=== PATIENT | female | born 2000 | race Two or more races ===

== ENCOUNTER 2024-09-20 18:10 | Emergency (ER) | payer MEDICAID, OTHER ==
[~2024-09-20] VITALS: Ht 157.5 cm; Wt 62.1 kg
--- NOTE | 2024-09-20 18:39 | ED.PDOC ---
SOB-HPI HPI Comments 24y F who presents to the ED for chief complaint of flu-like symptoms. Pt states she has been having body aches, congestion and flu-like symptoms for the past 2 days. Pt states today, she started to have RLQ with associated fever and sore throat and came to the ED for evaluation. Pt states he was at dr wright 1 week prior and states she was told "your appendix feels enlarged." Pt otherwise denies any recent sick contacts. Pt denies any other symptoms at this time. Chief Complaint: Flu like Time Seen by MD: 18:37 Reviewed notes: Medications Information Source: Patient Mode of Arrival: Ambulatory Brought in by: self Constitutional: reports: weakness, others (body aches); denies: chills, diaphoresis, fatigue, fever, malaise, sweats EENTM: denies: blurred vision, double vision, ear bleeding, ear discharge, ear drainage, ear pain, ear ringing, eye pain, eye redness, hearing loss, mouth pain, mouth swelling, nasal discharge, nose bleeding, nose congestion, nose pain, photophobia, tearing, throat pain, throat swelling, voice changes, others Respiratory: reports: cough, others (congestion ); denies: hemoptysis, orthopnea, SOB at rest, shortness of breath, SOB with excertion, stridor, whee zing Cardiovascular: denies: chest pain, dizzy spells, diaphoresis, Dyspnea on exertion, edema, irregular heart beat, left arm pain, lightheadedness, palpitations, PND, syncope, others Gastrointestinal: denies: abdomen distended, abdominal pain, blood streaked bowels, constipated, diarrhea, dysphagia, difficulty swallowing, hematemesis, m phani, nausea, poor appetite, poor fluid intake, rectal bleeding, rectal pain, vomiting, others Genitourinary: denies: abnormal vagina bleeding, burning, dyspareunia, dysuria, flank pain, frequency, hematuria, incontinence, pain, , vagina discharge, urgency, others Neurological: denies: dizziness, fainting, headache, left sided numbness, left sided weakness, numbness, paresthesia, pre-existing deficit, right sided numbness, right sided weakness, seizure, speech problems, tingling, tremors, weakness, others Musculoskeletal: denies: back pain, gout, joint pain, joint swelling, muscle pain, muscle stiffness, neck pain, others Integumetry: denies: bruises, change in color, change in hair/nails, dryness, laceration, lesions, lumps, rash, wounds, others Allergic/Immunocompromised: denies: Difficulty Healing, Frequent Infections, Hives, Itching, others Hematologic/Lymphatic: denies: anemia, blood clots, easy bleeding, easy bruising, swollen glands, others Endocrine: denies: excessive hunger, excessive sweating, excessive thirst, excessive urination, flushing, intolerance to cold, intolerance to heat, unexpla ined weight gain, unexplained weight loss, others Psychiatric: denies: anxiety, bipolar disorder, depression, hopeless, panic disorder, schizophrenia, sleepless, suicidal, others All Other Systems: Reviewed and Negative Physical Exam General Appearance: No Apparent Distress, Normal HEENT: Normal ENT Inspection, Pharynx Normal, TMs Normal Neck: Full Range of Motion, Non-Tender, Normal, Normal Inspection Respiratory: Chest Non-Tender, Lungs Clear, No Accessory Muscle Use, No Respiratory Distress, Normal Breath Sounds Cardiovascular: No Edema, No JVD, No Murmur, No Gallop, Normal Peripheral Pulses, Regular Rate/Rhythm Breast Exam: Deferred Gastrointestinal: RLQ (tenderness) Genitalia: Deferred Pelvic: Deferred Rectal: Deferred Extremities: No calf tenderness, Normal capillary refill, Normal inspection, Normal range of motion, Non-tender, No pedal edema Musculoskeletal : Apperance: Normal Neurologic: Alert, 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 Was a procedure done?: No Differential Dx Differential Diagnosis: Pneumonia, Pulmonary Embolism, Respiratory Distress, Pharyngitis, URI Comments influenza A and B, COVID, X-Ray, Labs, Meds, VS Vital Signs Date Time Temp Pulse Resp B/P (MAP) Pulse Ox O2 Delivery O2 Flow Rate FiO2 09/20/24 18:28 99.0 97 18 114/77 (89) 100 Lab Test 09/20/24 18:58 09/20/24 18:23 Range/Units White Blood Count 5.6 4.4-10.8 10^3/uL Red Blood Count 4.84 4.0-5.20 10^6/uL Hemoglobin 13.8 12.2-16.2 g/dL Hematocrit 41.6 36.0-46.0 % Mean Corpuscular Volume 85.8 80.0-100.0 fL Mean Corpuscular Hemoglobin 28.5 28.0-32.0 pg Mean Corpuscular Hemoglobin Concent 33.2 32.0-36.0 g/dL Red Cell Distribution Width 13.1 11.8-14.3 % Platelet Count 326 140-450 10^3/uL Mean Platelet Volume 7.9 6.9-10.8 fL Neutrophils (%) (Auto) 66.7 37.0-80.0 % Lymphocytes (%) (Auto) 20.1 10.0-50.0 % Monocytes (%) (Auto) 12.6 H 0.0-12.0 % Eosinophils (%) (Auto) 0.3 0.0-7.0 % Basophils (%) (Auto) 0.3 0.0-2.0 % Neutrophils # (Auto) 3.8 1.6-8.6 10 ^3/uL Lymphocytes # (Auto) 1.1 0.4-5.4 10 ^3/uL Monocytes # (Auto) 0.7 0-1.3 10 ^3/uL Eosinophils # (Auto) 0 0-0.8 10 ^3/uL Basophils # (Auto) 0 0-0.2 10 ^3/uL Nucleated Red Blood Cells 0.1 % Sodium Level 140 136-145 mmol/L Potassium Level 4.3 3.5-5.1 mmol/L Chloride Level 112 H 98-107 mmol/L Carbon Dioxide Level 24 20-31 mmol/L Anion Gap 4 L 5-15 Blood Urea Nitrogen 8 L 9-23 mg/dL Creatinine 0.85 0.550-1.02 mg/dL Glomerular Filtration Rate Calc 97 >90 mL/min BUN/Creatinine Ratio 9.4 L 10.0-20.0 Serum Glucose 90 74-106 mg/dL Calcium Level 10.1 8.7-10.4 mg/dL Total Bilirubin 0.2 0.2-1.0 mg/dL Aspartate Amino Transferase (AST) 14 13-40 U/L Alanine Aminotransferase (ALT) < 9 7-40 U/L Alkaline Phosphatase 75 46-116 U/L Total Protein 7.4 5.7-8.2 g/dL Albumin 4.6 3.2-4.8 g/dL Lipase 31 12-53 U/L Urine Color Yellow Yellow Urine Clarity Turbid H Clear Urine pH 6.0 5.0-9.0 Urine Specific [place] 1.035 1.001-1.035 Urine Protein 1+ H Negative Urine Ketones Trace Negative Urine Blood Negative Negative /uL Urine Nitrite Negative Negative Urine Bilirubin Negative Negative Urine Urobilinogen 3 H Negative mg/dL Urine Leukocyte Esterase 1+ Negative /uL Urine RBC 9 0 - 4 /hpf Urine WBC 7 0 - 5 /hpf Urine Squamous Epithelial Cells Few <5 /hpf Urine Bacteria Few H None Seen /hpf Urine Mucus Few None Seen Urine Yeast (Budding) Occasional None Seen /hpf Urine Glucose Normal Normal mg/dL [place] [id number] Ph: [phone] DIAGNOSTIC IMAGING Diagnostic Imaging Report : [id number] Signed PATIENT: IGOR VERGARA ACCT: [id number] UNIT: [id number] : 2000 LOC: ER ROOM / BED: / AGE / SEX: 24 / F ADM STATUS: REG ER SERVICE 183 ORDERING PHYSICIAN: JANA KOCH PROCEDURE(s): ABPL - CT AB PEL WO CON-NO ORAL OR IV REASON: RLQ pain ORDER NUMBER(s): [id number], ACCESSION NUMBER(s): [id number] CT SCAN ABDOMEN AND PELVIS WITHOUT CONTRAST CLINICAL HISTORY: RLQ pain TECHNIQUE: Helical axial images are obtained from the lung bases through the pelvis without oral contrast. No intravenous contrast was administered. Coronal and sagittal reformatted images were generated from thin section reconstructions. One or more of the following radiation dose reduction techniques were used for this examination: automated exposure control, adjustment of the mA and/or kV according to patient size, use of iterative reconstruction technique. COMPARISON: None FINDINGS: LOWER THORAX: Imaged lung bases are grossly clear. ABDOMEN AND PELVIS: Evaluation of visceral and vascular structures is limited due to lack of contrast administration. As visualized, the unenhanced liver, spleen, pancreas and adrenals appear grossly unremarkable. No sizable, radiopaque cholelithiasis or biliary ductal dilatation. No hydroureteronephrosis. No evidence of abdominal aortic aneurysm. No evidence of bowel obstruction. Mild apparent wall thickening of some small bowel loops in the mid abdomen. Normal caliber appendix. No free intraperitoneal air or fluid identified. No sizable bladder calculus. No destructive osseous lesions identified. Tiny fat containing umbilical hernia. IMPRESSION: Mild thickening of small-bowel loops in the mid abdomen which may reflect infectious/inflammatory enteritis. Please correlate clinically. ATED BY: SUDARSHAN RAMON MD DICTATED DATE/TIME: 09/20/241916 SIGNED BY: SUDARSHAN RAMON MD SIGNED DATE/TIME: 09/20/241916 CC: X-Ray, Labs, Meds, VS Comment Imaging: X-rays and CT scans were reviewed and interpreted by this provider, imaging shows no fractures and no pathological disease. Pending radiology review. Laboratory: Labs reviewed and interpreted by this provider. Positive bacteria in her urine. Concerns for possible UTI along with a viral infection. Patient has prior medical visits reviewed. Med reconciliation performed Vital signs reviewed Time of 1ST Reevaluation: 19:10 Reevaluation 1ST: Unchanged Patient Education/Counseling: Diagnosis, Treatment, Need For Follow Up (Follow up with the PCP in the next 2-5 days.) Family Education/Counseling: No Family Present Departure 1 Departure Time of Disposition: 20:31 Impression: Primary Impression: Viral illness Additional Impression: Urinary tract infection Qualified Codes: N30.00 - Acute cystitis without hematuria Disposition: HOME / SELF CARE / HOMELESS Condition: Fair e-Prescriptions Ibuprofen (Ibuprofen) 600 Mg Tab 1 TAB PO TID PRN, #30 TAB Prov: JANA KOCH 09/20/24 Nitrofurantoin Monohydrate Mac (Macrobid) 100 Mg Cap 100 MG PO BID for 5 Days, #10 CAP Prov: JANA KOCH 09/20/24 Discharged With: Self Critical Care Note Critical Care Time?: No Stability Stability form required: No Heart Score Heart Score: Heart Score Response (Comments) Value History N/A 0 EKG N/A 0 Age N/A 0 Risk Factors N/A 0 Troponin N/A 0 Total 0 I personally scribed for JANA KOCH ([facility]) on 09/20/24 at 18:39. Electronically submitted by Allan Collado ([email or web address]). I personally scribed for JANA KOCH ([facility]) on 09/20/24 at 19:57. Electronically submitted by Allan Collado ([email or web address]). JANA KOCH Sep 20, 2024 18:39
[2024-09-20 19:16] LABS: Basophils # (auto) 0 10 ^3/uL (0-0.2); Basophils % (auto) 0.3 % (0.0-2.0); Eosinophils # (auto) 0 10 ^3/uL (0-0.8); Eosinophils % (auto) 0.3 % (0.0-7.0); Hematocrit 41.6 % (36.0-46.0); Hemoglobin 13.8 g/dL (12.2-16.2); Lymphocytes # (auto) 1.1 10 ^3/uL (0.4-5.4); Lymphocytes % (auto) 20.1 % (10.0-50.0); Mean Corpuscular Hemoglobin 28.5 pg (28.0-32.0); Mean Corpuscular Hgb Conc. 33.2 g/dL (32.0-36.0); Mean Corpuscular Volume 85.8 fL (80.0-100.0); Monocytes # (auto) 0.7 10 ^3/uL (0-1.3); Monocytes % (auto) 12.6 % (0.0-12.0); Neutrophils # (auto) 3.8 10 ^3/uL (1.6-8.6); Neutrophils % (auto) 66.7 % (37.0-80.0); Nucleated Red Blood Cells % 0.1 %; Platelet Count (auto) 326 10^3/uL (140-450); Red Blood Cells 4.84 10^6/uL (4.0-5.20); Red Cell Distribution Width 13.1 % (11.8-14.3); White Blood Cell 5.6 10^3/uL (4.4-10.8)
--- NOTE | 2024-09-20 19:20 | DVH ---
CT SCAN ABDOMEN AND PELVIS WITHOUT CONTRAST CLINICAL HISTORY: RLQ pain TECHNIQUE: Helical axial images are obtained from the lung bases through the pelvis without oral cont rast. No intravenous contrast was administered. Coronal and sagittal reformatted images were generate d from thin section reconstructions. One or more of the following radiation dose reduction techniques were used for this examination: automated exposure control, adjustment of the mA and/or kV according to patient size, use of iterative reconstruction technique. COMPARISON: None FINDINGS: LOWER THORAX: Imaged lung bases are grossly clear. ABDOMEN AND PELVIS: Evaluation of visceral and vascular structures is limited due to lack of contrast administration. As visualized, the unenhanced liver, spleen, pancreas and adrenals appear grossly unremarkable. No si zable, radiopaque cholelithiasis or biliary ductal dilatation. No hydroureteronephrosis. No evidence of abdominal aortic aneurysm. No evidence of bowel obstruction. Mild apparent wall thickening of some small bowel loops in the mid abdomen. Normal caliber appendix. No free intraperitoneal air or fluid identified. No sizable bladder calculus. No destructive osseous lesions identified. Tiny fat containing umbilical hernia. IMPRESSION: Mild thickening of small-bowel loops in the mid abdomen which may reflect infectious/inflammatory ent eritis. Please correlate clinically.
[2024-09-20 19:32] LABS: Albumin 4.6 g/dL (3.2-4.8); Alkaline Phosphatase 75 U/L (46-116); Anion Gap 4 (5-15); Aspartate Aminotransferase 14 U/L (13-40); BUN/Creatinine Ratio 9.4 (10.0-20.0); Calcium 10.1 mg/dL (8.7-10.4); Carbon Dioxide 24 mmol/L (20-31); Glucose 90 mg/dL (74-106); Lipase 31 U/L (12-53); Potassium 4.3 mmol/L (3.5-5.1); Sodium 140 mmol/L (136-145); Total Protein 7.4 g/dL (5.7-8.2)
[2024-09-20 19:37] LABS: Alanine Aminotransferase < 9 U/L (7-40); Bilirubin, Total 0.2 mg/dL (0.2-1.0); Blood Urea Nitrogen 8 mg/dL (9-23); Chloride 112 mmol/L (98-107)
[2024-09-20 19:43] LABS: Urine Bacteria FEW /hpf (None Seen); Urine Blood Negative /uL (Negative); Urine Budding Yeast OCCASIONAL /hpf (None Seen); Urine Clarity Turbid (Clear); Urine Color Yellow (Yellow); Urine Mucus FEW (None Seen); Urine Protein, UAD 1+ (Negative); Urine Specific Gravity 1.035 (1.001-1.035); Urine Urobilinogen 3 mg/dL (Negative); Urine WBC 7 /hpf (0 - 5)
[2024-09-20] MEDS ORDERED: NITR-87 PO (20:32)
[2024-09-20] MEDS ORDERED: IBUP-1454 PO (20:32)
[2024-09-20 21:45] VITALS: BP 122/81; PULSE 95; RESP 17; O2SAT 96
== END 2024-09-20 21:46 | disposition home or self-care (01) ==
LOC: ER 18:10
DX: B34.9 Viral infection, unspecified (principal); N39.0 Urinary tract infection, site not specified; R10.31 Right lower quadrant pain
CPT/HCPCS: 36415; 74176; 80053; 81001; 83690; 85025